=== PATIENT | male | born 1980 | race Caucasian/White ===

== ENCOUNTER 2017-01-29 08:30 | Emergency (ER) | payer OTHER ==
[2017-01-29 08:52] VITALS: BP 133/62; PULSE 78; RESP 18; TEMP 98; O2SAT 97
--- NOTE | 2017-01-29 09:20 | UCPHY ---
H & P Time Seen by Provider: 01/29/17 08:56 Patient Type: New HPI/ROS: 36-year-old male presents complaining of sinus congestion, sinus pain and severe right ear pain. He states he had a cold for about 10 days and then woke up yesterday with this severe pain. Positive fevers and chills Review of systems As per HPI-positive URI positive right ear pain General positive fever positive chills no weakness HEENT no eye pain no eye discharge. No eye redness, no sore throat Respiratory no cough, no shortness of breath Cardiac no chest pain, no peripheral edema GI no abdominal pain, no diarrhea, no constipation, no nausea, no vomiting no flank pain, no hematuria, no dysuria Musculoskeletal no myalgias, no joint pain Heme no easy bruising, no easy bleeding Endo no polyuria, no polydipsia Skin no rashes, no pruritus Neuro no syncope, no dizziness, no headaches Psych is no suicidal ideation, no homicidal ideation Past Medical/Surgical History: Noncontributory Social History: Drinks alcohol socially, denies drug use Smoking Status: Never smoked Physical Exam: 36-year-old male Alert and oriented nontoxic appearance, no acute distress afebrile Atraumatic normocephalic Extraocular muscles intact, anicteric Right TM bulging red Nares mild yellowish discharge, nasal turbinates swelling erythema present Oropharynx mild erythema no tonsillar swelling no exudate no uvular deviation, tolerating own secretions Neck supple no lymphadenopathy Lungs clear to auscultation bilaterally Heart regular rate and rhythm Abdomen normoactive bowel sounds soft nontender Extremities no cyanosis clubbing or edema Skin no rash Constitutional: Initial Vital Signs Temperature (C) 36.6 C 01/29/17 08:50 Heart Rate 78 01/29/17 08:50 Respiratory Rate 18 01/29/17 08:50 Blood Pressure 133/62 H 01/29/17 08:50 O2 Sat (%) 97 01/29/17 08:50 O2 Delivery Mode Room Air Allergies/Adverse Reactions: No Known Allergies Allergy (Unverified 01/29/17 08:49) Home Medications: Medication Instructions Recorded Amoxicillin/Clavulanate Pot 875 mg PO BID #20 tab 01/29/17 [Augmentin 875 MG TAB (*)] oxyCODONE IR [Oxycodone Ir (*)] 5 mg PO Q6 PRN #08 tab 01/29/17 Medical Decision Making ED Course/Re-evaluation: Patient seen and evaluated for right ear pain, sinus congestion Physical exam significant for bulging right eardrum, nasal turbinates swelling and discharge Differential diagnosis considered Sinusitis, URI, pharyngitis, otitis media Impression Acute right otitis media Sinus congestion Plan Augmentin 875 twice daily times 10 days Fluticasone Oxycodone IR, #8 Acetaminophen or ibuprofen as needed Departure - Departure Disposition: Home, Routine, Self-Care Clinical Impression: Right otitis media, Sinusitis Condition: Good Instructions: Otitis Media (ED) Additional Instructions: Consider adding a nasal steroid spray to your regimen, fluticasone or Flonase or nasocort Augmentin, 875 twice a day for 10 days Continue a decongestant as well Drink lots of liquids, rest, acetaminophen or ibuprofen as needed for pain Your being given a prescription for oxycodone IR, very short term for severe pain Referrals: Cristi Godoy MD [Primary Care Provider] - As per Instructions Prescriptions: Amoxicillin/Clavulanate Pot [Augmentin 875 MG TAB (*)] 875 mg PO BID #20 tab oxyCODONE IR [Oxycodone Ir (*)] 5 mg PO Q6 PRN #08 tab PRN Reason: Pain, Severe - PQRS PQRS Measurement: Not applicable
== END 2017-01-29 09:36 | disposition home or self-care (01) ==
LOC: CED 08:30
DX: H66.91 Otitis media, unspecified, right ear (principal); J32.9 Chronic sinusitis, unspecified
CPT/HCPCS: 99203-PO; G0463-PO